=== PATIENT | female | born 1955 | race Caucasian/White ===

== ENCOUNTER → 2016-05-17 | Day surgery (SDC) | payer BC ==
[2016-05-03 09:13] VITALS: Ht 170.2 cm; Wt 79.5 kg
[~2016-05-17] VITALS: Ht 170.2 cm; Wt 79.5 kg
[~2016-05-17] MED LIST: ASCO500T3 PO; B-CO1TAB21 PO; CALC-354 PO; CHOL2000 PO; FENTANYL CITRATE INJ 50 MCG/1 ML 2 ML VIAL ONE; FOLI1TAB7 PO; GLUC10007 PO; LIDOCAINE HCL 2% 2 ML VIAL (20MG/ML) ONE; MAGN1CAP2 PO; MULT-614 PO; PHEN-310 PO; PHEN1TAB86 PO; PHN/100 PO; PROPOFOL IV EMULSION 10 MG/ML 20 ML VIAL IV ONE; SODIUM CHLORIDE 0.9% 500ML 500 ML IV ONE; VITA400C3 PO
[2016-05-17 09:54] VITALS: TEMP 37
--- NOTE | 2016-05-17 10:03 | Endo History and Physical ---
History & Physical Date of Service: May 17, 2016. Chief Complaint: screening Referring Physician: Dr Miller History of Present Illness 60 yo CF who presents for screening colonoscopy. Past Surgical History Hx Cardiac Surgery: No Hx Internal Defibrillator: No Hx Pacemaker: No Hx Abdominal Surgery: No Hx of Implantable Prosthesis: No Hx Post-Op Nausea and Vomiting: No Hx Cancer Surgery: No Hx Thoracic Surgery: No Hx Orthopedic: No Hx Urinary Tract Surgery: No Family History Colon CA Social History Smoking Status: Never Smoker Hx Substance Use: No Hx Alcohol Use: Yes (RARELY) Allergies Coded Allergies: BEE STING (Verified Allergy, Unknown, HIVES, 05/03/16) NO KNOWN DRUG ALLERGIES (Verified Allergy, Unknown, ., 05/03/16) Current Medications Reported Home Medications Medications Dose Route/Sig Max Daily Dose Days Date Category Centrum Silver Ultra Wome (Multiple Vitamins W/ Minerals) 1 Tab Tab 1 Tab PO QAM 05/03/16 Reported Magnesium (Magnesium Oxide (Mg Supplement) 400 Mg Cap 1 Cap PO BID 05/03/16 Reported Glucosamine (Glucosamine Sulfate) 1,000 Mg Tab 1,000 Mg PO 3XWK 05/03/16 Reported Folvite (Folic Acid) 1 Mg Tab 1 Mg PO QAM 05/03/16 Reported Vitamin E 400 Iu (Vitamin E) 400 Unit Cap 400 Inter.unit PO QAM 05/03/16 Reported Vitamin D3 (Cholecalciferol) 2,000 Unit Cap 1 Cap PO BID 90 05/03/16 Reported Caltrate 600+D (Calcium Carbonate-Cholecalcife) 1 Tab Tab 1-2 Tab PO QAM 05/03/16 Reported Vitamin C (Ascorbic Acid) 500 Mg Tab 1-2 Tab PO QAM 05/03/16 Reported Vitamin B50 Complex Tr (B-Complex W/Biotin & Folic Aci) 1 Tab Tab 1 Tab PO QAM 05/03/16 Reported Phenobarbital 60 Mg Tab 60 Mg PO BID 05/03/16 Reported Dilantin (Phenytoin Sodium Extended) 30 Mg Cap 2 Cap PO HS 05/03/16 Reported Dilantin (Phenytoin Sodium) 100 Mg Cap 100 Mg PO TID 05/03/16 Reported Vital Signs Weight (Kilograms): 79.55 Height (Feet): 5 Height (Inches): 7 Date Time Temp Pulse Resp B/P Pulse Ox O2 Delivery O2 Flow Rate FiO2 05/17/16 09:54 37 89 20 155/84 95 Room Air Physical Exam General Appearance: WD/WN, no apparent distress Respiratory/Chest: Auscultation: breath sounds normal Cardiovascular: Heart Auscultation: RRR Abdomen: Bowel Sounds: normal Inspection & Palpation: soft, non-distended, no tenderness, guarding & rebound Assessment and Plan Assessment: 60 yo CF who presents for screening colonoscopy. Plan: Proceed with colonoscopy.
--- NOTE | 2016-05-17 10:21 | Discharge Instructions ---
Endoscopy Patient Instructions Date / Procedure(s) Performed May 17, 2016. Colonoscopy Allergy Information Coded Allergies: BEE STING (Verified Allergy, Unknown, HIVES, 05/03/16) NO KNOWN DRUG ALLERGIES (Verified Allergy, Unknown, ., 05/03/16) Discharge Date / Findings May 17, 2016. Internal hemorrhoids Medication Instructions OK to resume all medications today as prescribed. Reported Home Medications Medications Dose Route/Sig Max Daily Dose Days Date Category Centrum Silver Ultra Wome (Multiple Vitamins W/ Minerals) 1 Tab Tab 1 Tab PO QAM 05/03/16 Reported Magnesium (Magnesium Oxide (Mg Supplement) 400 Mg Cap 1 Cap PO BID 05/03/16 Reported Glucosamine (Glucosamine Sulfate) 1,000 Mg Tab 1,000 Mg PO 3XWK 05/03/16 Reported Folvite (Folic Acid) 1 Mg Tab 1 Mg PO QAM 05/03/16 Reported Vitamin E 400 Iu (Vitamin E) 400 Unit Cap 400 Inter.unit PO QAM 05/03/16 Reported Vitamin D3 (Cholecalciferol) 2,000 Unit Cap 1 Cap PO BID 90 05/03/16 Reported Caltrate 600+D (Calcium Carbonate-Cholecalcife) 1 Tab Tab 1-2 Tab PO QAM 05/03/16 Reported Vitamin C (Ascorbic Acid) 500 Mg Tab 1-2 Tab PO QAM 05/03/16 Reported Vitamin B50 Complex Tr (B-Complex W/Biotin & Folic Aci) 1 Tab Tab 1 Tab PO QAM 05/03/16 Reported Phenobarbital 60 Mg Tab 60 Mg PO BID 05/03/16 Reported Dilantin (Phenytoin Sodium Extended) 30 Mg Cap 2 Cap PO HS 05/03/16 Reported Dilantin (Phenytoin Sodium) 100 Mg Cap 100 Mg PO TID 05/03/16 Reported Provider Instructions Activity Restrictions - No exercising or heavy lifting for 24 hours. - Do not drink alcohol the day of the procedure. - Do not drive a car or operate machinery until the day after the procedure. - Do not make any important decisions or sign important papers in 24 hours after the procedure. Following Day: - Return to full activity which may include returning to work/school. Diet Start your diet with liquids and light foods (jello, soup, juice, toast). Then eat your usual diet if not nauseated. Treatment For Common After Affects For mild abdominal pain, bloating, or excessive gas: - Rest - Eat lightly - Lie on right side Follow-Up Information Follow-up with Dr Miller as scheduled Anesthesia Information What You Should Know You have had a procedure that required some medicine to reduce anxiety and discomfort. This treatment is called moderate sedation. After receiving the treatment, you may be sleepy, but you will be able to breathe on your own. The effects of the treatment may last for several hours. Follow these instructions along with Activity/Diet recommendations noted above: * Do NOT do anything where dizziness or clumsiness would be dangerous. * Rest quietly at home today, then you can be up and about tomorrow. * Have a responsible person stay with you the rest of today. * You may have had an I.V. today. If so, you may take the dressing off later today. Recommendations Call your doctor if: * Trouble breathing * Continuous vomiting for more than 24 hours * Temperature above 101 degrees * Severe abdominal pain or bloating * Pain not relieved by pain medicine ordered * There is increased drainage or redness from any incision * A large amount of rectal bleeding greater than 2-3 tablespoons. (If you had a polyp/s removed or have hemorrhoids, a small amount of blood - from the rectum is to be expected.) * You have any unanswered questions or concerns. IN THE EVENT OF A SERIOUS EMERGENCY, GO TO THE NEAREST EMERGENCY ROOM Your discharge instructions were prepared by provider Robin Dalton. Patient Instructions Signature Page Kathy Rodriguez Patient (or Guardian) Signature/Date: I have read and understand the instructions given to me by my caregivers. Caregiver/RN/Doctor Signature/Date: The above-named patient and/or guardian has received patient instructions on this date. + Original Patient Signature Page (only) stays with chart. Please make copy for patient.
--- NOTE | 2016-05-17 10:24 | GI REPORT ---
Procedure Date: 05/17/2016 9:58 AM Procedure: Colonoscopy Indications: Screening for colorectal malignant neoplasm Medicines: Monitored Anesthesia Care Complications: No immediate complications. Estimated Blood Loss: Estimated blood loss: none. Procedure: Pre-Anesthesia Assessment: - Prior to the procedure, a History and Physical was performed, and patient medications and allergies were reviewed. The patient's tolerance of previous anesthesia was also reviewed. The risks and benefits of the procedure and the sedation options and risks were discussed with the patient. All questions were answered, and informed consent was obtained. Prior Anticoagulants: The patient has taken no previous anticoagulant or antiplatelet agents. ASA Grade Assessment: II - A patient with mild systemic disease. After reviewing the risks and benefits, the patient was deemed in satisfactory condition to undergo the procedure. After I obtained informed consent, the scope was passed under direct vision. Throughout the procedure, the patient's blood pressure, pulse, and oxygen saturations were monitored continuously. The scope was introduced through the anus and advanced to the terminal ileum. The colonoscopy was performed without difficulty. The patient tolerated the procedure well. The quality of the bowel preparation was good. The terminal ileum, ileocecal valve, appendiceal orifice, and rectum were photographed. Findings: Non-bleeding internal hemorrhoids were found during retroflexion. The hemorrhoids were small. Impression: - Non-bleeding internal hemorrhoids. - No specimens collected. Recommendation: - Resume previous diet. - Continue present medications. - Repeat colonoscopy in 10 years for surveillance. - Return to primary care physician as previously scheduled. Robin Dalton DO 05/17/2016 10:24:34 AM This report has been signed electronically. Note Initiated On: 05/17/2016 9:58 AM I attest to the content of the Intraoperative Record and orders documented therein, exceptions below
--- NOTE | 2016-05-17 10:38 | Anesthesiology Progress Note ---
Anesthesia Post Op Note Date & Time May 17, 2016 at 10:37 Vital Signs Pain Intensity: 0 Vital Signs Past 12 Hours Date Time Temp Pulse Resp B/P Pulse Ox O2 Delivery O2 Flow Rate FiO2 05/17/16 10:21 75 20 128/55 98 Room Air 05/17/16 09:54 37 89 20 155/84 95 Room Air Notes Mental Status: alert / awake / arousable, participated in evaluation Pt Amnestic to Procedure: Yes Nausea / Vomiting: adequately controlled Pain: adequately controlled Airway Patency, RR, SpO2: stable & adequate BP & HR: stable & adequate Hydration State: stable & adequate Anesthetic Complications: no major complications apparent
[2016-05-17 10:48] VITALS: BP 139/57; PULSE 72; O2SAT 98
== END | disposition home or self-care (01) ==
LOC: C.GI 09:08
PROVIDERS: ATTEND Internal Medicine
DX: Z12.11 Encounter for screening for malignant neoplasm of colon (principal); Z80.0 Family history of malignant neoplasm of digestive organs; K64.8 Other hemorrhoids

== ENCOUNTER → 2016-06-18 | Outpatient (CLI) | payer BC ==
[~2016-06-18] VITALS: Ht 170.2 cm; Wt 84.9 kg
[~2016-06-18] MED LIST changes: -FENTANYL CITRATE INJ 50 MCG/1 ML 2 ML VIAL ONE; -LIDOCAINE HCL 2% 2 ML VIAL (20MG/ML) ONE; -PROPOFOL IV EMULSION 10 MG/ML 20 ML VIAL IV ONE; -SODIUM CHLORIDE 0.9% 500ML 500 ML IV ONE
[2016-06-18 15:16] VITALS: BP 149/80; PULSE 71; Ht 170.2 cm; Wt 84.9 kg
== END | disposition home or self-care (01) ==
LOC: C.NEUR 15:06
PROVIDERS: ATTEND Physician Assistant
DX: G47.33 Obstructive sleep apnea (adult) (pediatric) (principal)

== ENCOUNTER → 2016-12-23 | Outpatient (CLI) | payer BC ==
[~2016-12-23] VITALS: Ht 170.2 cm; Wt 88.7 kg
[2016-12-23 14:59] VITALS: BP 148/84; PULSE 66; Ht 170.2 cm; Wt 88.7 kg
== END | disposition home or self-care (01) ==
LOC: C.NEUR 14:38
PROVIDERS: ATTEND Physician Assistant
DX: G47.33 Obstructive sleep apnea (adult) (pediatric) (principal)

== ENCOUNTER → 2017-02-18 | Outpatient (CLI) | payer BC ==
[~2017-02-18] MED LIST changes: -FOLI1TAB7 PO; +FOLI1TAB8 PO
--- NOTE | 2017-02-21 07:59 | MAMMOGRAPHY REPORT ---
BILATERAL DIGITAL SCREENING MAMMOGRAM TOMOSYNTHESIS WITH CAD: 02/18/2017 CLINICAL HISTORY: Routine screening. Patient has no complaints. TECHNIQUE: Breast tomosynthesis in addition to standard 2D mammography was performed. Current study was also evaluated with a Computer Aided Detection (CAD) system. COMPARISON: Comparison is made to exams dated: 02/03/2016 mammogram, 01/28/2015 mammogram, 05/18/2012 mammogram, 05/13/2011 mammogram, 09/23/2009 mammogram - [facility], and 07/19/2007. BREAST COMPOSITION: There are scattered areas of fibroglandular density in both breasts. FINDINGS: No suspicious masses, calcifications, or areas of architectural distortion are noted in ei ther breast. There has been no significant interval change compared to prior exams. IMPRESSION: ACR BI-RADS CATEGORY 1: NEGATIVE There is no mammographic evidence of malignancy. A 1 year screening mammogram is recommended. The pa tient will receive written notification of the results. Approximately 10% of breast cancers are not detected with mammography. A negative mammographic report should not delay biopsy if a clinically suggestive mass is present. Lorie Stout M.D. /:02/18/2017 15:14:50 Research Compliance Specialist: Nohemy CORRAL(Holli)(Anival)([place]), [facility] letter sent: Normal 1/2 BI-RADS Code: ACR BI-RADS Category 1: Negative
== END | disposition home or self-care (01) ==
LOC: C.MAMM 13:55
PROVIDERS: ATTEND Internal Medicine
DX: Z12.31 Encounter for screening mammogram for malignant neoplasm of breast (principal)

== ENCOUNTER → 2017-07-27 | Outpatient (CLI) | payer BC ==
[2017-07-27 10:37] LABS: BASO % 0.5 %; BASO ABS # 0.02 K/uL (0-0.2); EOS % 0.9 %; EOS ABS # 0.04 K/uL (0-0.5); HEMATOCRIT 39.7 % (37-47); IG# 0.01 K/uL (0.00-0.02); LYMPH % 27.8 %; LYMPH ABS # 1.23 K/uL (1.2-3.4); MEAN CELL VOLUME 87.8 fL (80-100); MEAN CORPUSCULAR HGB CONC 35.3 g/dl (32-36); MEAN PLATELET VOLUME 10.2 fL (7.4-10.4); MONO % 6.1 %; MONO ABS # 0.27 K/uL (0.11-0.59); NEUT % 64.5 %; NEUT ABS # 2.86 K/uL (1.4-6.5); PLATELET COUNT 218 K/uL (130-400); RED CELL DISTRIBUTION WIDTH CV 12.5 % (11.5-14.5); RED CELL DISTRIBUTION WIDTH SD 40.5 fL (36.4-46.3); WHITE BLOOD COUNT 4.43 K/uL (4.8-10.8)
[2017-07-27 11:15] LABS: PHENYTOIN (DILANTIN) 16.6 mcg/mL (10-20)
[2017-07-27 11:19] LABS: ALBUMIN 4.2 gm/dl (3.4-5.0); ALKALINE PHOSPHATASE 119 U/L (45-117); ALT/SGPT 23 U/L (12-78); AST/SGOT 18 U/L (15-37); BLOOD UREA NITROGEN 9 mg/dl (7-18); CARBON DIOXIDE 32 mmol/L (21-32); CREATININE 0.71 mg/dl (0.60-1.20); GLUCOSE 88 mg/dl (70-99); POTASSIUM 4.2 mmol/L (3.5-5.1); SODIUM 138 mmol/L (136-145); TOTAL PROTEIN 7.8 gm/dl (6.4-8.2)
== END | disposition home or self-care (01) ==
LOC: C.LAB1850 09:17
PROVIDERS: ATTEND Internal Medicine
DX: G40.909 Epilepsy, unspecified, not intractable, without status epilepticus (principal)